=== PATIENT | female | born 1945 | race Hispanic/Latino ===

== ENCOUNTER 2024-05-06 10:22 | Inpatient (IN) | payer MEDICARE ==
[2024-05-06] VITALS (15 sets, daily range): BP systolic 125–152; BP diastolic 50–64; PULSE 81–96; RESP 13–19; TEMP 97.4–98.3; O2SAT 100
[~2024-05-06] VITALS: Ht 157.5 cm; Wt 44.5 kg
[~2024-05-06 10:22] MED LIST: CEFDINIR300 MG PO; DIFLUCAN200 MG PO; GLYBURID-METFO1 EAC2 PO; LISINOPRIL5 MG PO; METFORMIN HCL500 MG PO; Z.0.ALENDRONATE SOD7 PO; Z.0.ATENOLOL50 MG PO; Z.0.BENAZEPRIL HCL10 PO; Z.0.FAMOTIDINE20 MG PO; Z.0.GABAPENTIN300 MG PO; Z.0.JANUVIA100 MG PO; Z.0.METOCLOPRAMIDE10 PO; Z.0.SIMVASTATIN40 MG PO; [UNRECOGNIZED DRUG - OTHER] PO
[2024-05-06 11:38] LABS: CLARITY,URINE TURBID (CLEAR); COLOR,URINE YELLOW (YELLOW)
[2024-05-06 11:39] LABS: BILIRUBIN,URINE NEGATIVE (NEGATIVE); GLUCOSE, URINE 500 (NEGATIVE); KETONES,URINE >=160 (NEGATIVE); LEUKOCYTE ESTERASE ,URINE SMALL (NEGATIVE); NITRITE,URINE NEGATIVE (NEGATIVE); PH,URINE 6 (5 - 7); PROTEIN,URINE DIPSTICK 1+ (NEGATIVE); URINE UROBILINOGEN 0.2 mg/dL (0.2 - 1)
[2024-05-06 11:41] LABS: BACTERIA,URINE MODERATE /HPF; EPITHELIAL CELLS,URINE FEW /LPF; RBC,URINE >50 /HPF (0-5); WBC,URINE (MAN) >50 /HPF (0-5)
[2024-05-06 13:13] LABS: BASOPHILS # (AUTO) 0.1 (0.0-0.1); BASOPHILS % 0.5 % (0.0-1.0); EOSINOPHILS % 0.1 % (0.0-6.0); HEMOGLOBIN 13.2 g/dL (12.0-16.0); LYMPHOCYTES # (AUTO) 1.1 (1.0-3.2); LYMPHOCYTES % 8.3 % (18.0-39.1); MEAN CORPUSCULAR HGB CONC 32.2 g/dL (31-35); MEAN CORPUSCULAR VOLUME 90.1 fL (81-99); MONOCYTES # (AUTO) 0.9 (0.2-0.8); MONOCYTES % 7.2 % (4.4-11.3); NEUTROPHILS # (AUTO) 10.6 (2.1-6.9); NEUTROPHILS % 81.8 % (38.7-80.0); PLATELET COUNT 242 x10e3/uL (140-360); RED BLOOD COUNT 4.55 x10e6/uL (3.6-5.1); RED CELL DISTRIBUTION WIDTH 16.6 % (11.7-14.4)
[2024-05-06 13:38] LABS: INR 0.94; PARTIAL THROMBOPLASTIN TIME 27.6 seconds (23.8-35.5); PROTHROMBIN TIME 13.2 seconds (11.9-14.5)
[2024-05-06 13:47] LABS: ALBUMIN 3.1 g/dL (3.5-5.0); ALBUMIN/GLOBULIN RATIO 0.6 (0.8-2.0); ALKALINE PHOSPHATASE 135 IU/L (40-150); ANION GAP 29.9 mmol/L (8-16); BILIRUBIN,TOTAL 0.5 mg/dL (0.2-1.2); BLOOD UREA NITROGEN 14 mg/dL (7-26); BUN/CREATININE RATIO 10 (6-25); CALCIUM 9.8 mg/dL (8.4-10.2); CHLORIDE 101 mmol/L (98-107); CREATININE, SERUM 1.44 mg/dL (0.57-1.11); EST GLOMERULAR FILTRATION RATE 37 ML/MIN (>=60); MAGNESIUM 1.8 MG/DL (1.3-2.1); POTASSIUM 3.9 mmol/L (3.5-5.1); SODIUM 134 mmol/L (136-145); TOTAL PROTEIN 8.1 g/dL (6.5-8.1)
[2024-05-06 14:04] LABS: CARBON DIOXIDE 7 mmol/L (22-29)
[2024-05-06 14:05] LABS: ALANINE AMINOTRANSFERASE < 6 IU/L (0-55); GLUCOSE 465 mg/dL (74-118)
[2024-05-06] MEDS: CEFTRIAXONE 1 GM VIAL IM ONE (14:32)
[2024-05-06] MEDS ORDERED: LIDOCAINE HCL 1% LOCAL INJ 20 ML VIAL ONE (14:33)
[2024-05-06] MEDS ORDERED: CEFTRIAXONE 1 GM VIAL ONE (14:33)
[2024-05-06] MEDS: MUPIROCIN 2% OINT 22 GM TUBE NS SCH (14:45)
[2024-05-06] MEDS: OXYBUTYNIN CHLORIDE 5 MG TAB PO ONE (14:54)
[2024-05-06 14:58] LABS: TROPONIN I 0.001 ng/mL (0-0.300)
[2024-05-06] MEDS: INSULIN REGULAR, HUMAN 100 UNIT/1 ML SQ ONE (15:01)
[2024-05-06] MEDS: INSULIN REGULAR, HUMAN 100 UNIT/1 ML IV ONE (17:54)
[2024-05-06] MEDS: FLUCONAZOLE 200 MG/100 ML 100 ML IV SCH (19:09)
[2024-05-06] MEDS: SODIUM CHLORIDE 0.9% 1000ML 1,000 ML IV SCH (19:10)
[2024-05-06] MEDS: SODIUM CHLORIDE 0.9% 1000ML 1,000 ML IV STA (19:10)
[2024-05-06] MEDS: INSULIN REGULAR, HUMAN 3ML VL 100 UNIT in SODIUM CHLORIDE 0.9% 99 ML IV SCH (19:13)
[2024-05-06] MEDS: SIMVASTATIN 40 MG TAB PO SCH (21:00)
[2024-05-07] VITALS (43 sets, daily range): BP systolic 90–137; BP diastolic 37–80; PULSE 25–107; RESP 11–20; TEMP 97.8–98.9; O2SAT 93–100
[2024-05-07] MEDS: DEXTROSE 5%/0.45% SOD CHL 1,000 ML IV SCH (00:07)
[2024-05-07 00:20] LABS: ANION GAP 14.8 mmol/L (8-16); CREATININE, SERUM 0.79 mg/dL (0.57-1.11); MAGNESIUM 1.3 MG/DL (1.3-2.1)
[2024-05-07 00:41] LABS: CALCIUM 8.2 mg/dL (8.4-10.2); POTASSIUM 2.8 mmol/L (3.5-5.1)
[2024-05-07] MEDS: MAGNESIUM SULF 1GRAM/DEXTROSE 100 ML IV PRN (00:59)
[2024-05-07] MEDS: POTASSIUM CHLORIDE 20MEQ/100ML 200 ML IV PRN (01:00)
[2024-05-07 01:09] LABS: TROPONIN I 0.011 ng/mL (0-0.300)
[2024-05-07 03:48] LABS: ANION GAP 12.4 mmol/L (8-16); CALCIUM 8.1 mg/dL (8.4-10.2); CREATININE, SERUM 0.8 mg/dL (0.57-1.11); MAGNESIUM 1.7 MG/DL (1.3-2.1)
[2024-05-07 03:53] LABS: POTASSIUM 3.4 mmol/L (3.5-5.1)
[2024-05-07] MEDS: POTASSIUM CHLORIDE 20MEQ/100ML 200 ML ONE ×2 (04:11→04:12)
[2024-05-07] MEDS: MAGNESIUM SULF 1GRAM/DEXTROSE 100 ML IV ONE ×3 (04:12→12:31)
[2024-05-07 06:18] LABS: BASOPHILS % 0.2 % (0.0-1.0); EOSINOPHILS % 0.4 % (0.0-6.0); HEMATOCRIT 28.8 % (34.2-44.1); LYMPHOCYTES # (AUTO) 1.3 (1.0-3.2); LYMPHOCYTES % 12.2 % (18.0-39.1); MEAN CORPUSCULAR HEMOGLOBIN 28.8 pg (28-32); MEAN CORPUSCULAR VOLUME 84.7 fL (81-99); MONOCYTES # (AUTO) 0.9 (0.2-0.8); MONOCYTES % 8.3 % (4.4-11.3); NEUTROPHILS # (AUTO) 8.5 (2.1-6.9); NEUTROPHILS % 77.1 % (38.7-80.0); PLATELET COUNT 211 x10e3/uL (140-360); RED CELL DISTRIBUTION WIDTH 16.2 % (11.7-14.4); WHITE BLOOD COUNT 11.01 x10e3/uL (4.8-10.8)
[2024-05-07 06:25] LABS: HEMOGLOBIN 9.8 g/dL (12.0-16.0)
[2024-05-07 06:58] LABS: ANION GAP 11.3 mmol/L (8-16); CALCIUM 8.1 mg/dL (8.4-10.2); CREATININE, SERUM 0.74 mg/dL (0.57-1.11); MAGNESIUM 1.9 MG/DL (1.3-2.1)
[2024-05-07 06:59] LABS: POTASSIUM 3.3 mmol/L (3.5-5.1)
[2024-05-07 07:28] LABS: CHOL/HDL RATIO 2.9 (3.0-3.6)
[2024-05-07 07:52] LABS: TROPONIN I 0.001 ng/mL (0-0.300)
[2024-05-07] MEDS: Vancomycin IV 1 GM in SODIUM CHLORIDE 0.9% 250ML 250 ML IV ONE (08:13)
[2024-05-07] MEDS: POTASSIUM CHLORIDE 20MEQ/100ML 200 ML IV ONE (08:13)
[2024-05-07] MEDS: GABAPENTIN 300 MG CAP PO SCH (08:14)
[2024-05-07] MEDS: APIXABAN 2.5 MG TABLET PO SCH (08:14)
[2024-05-07 11:49] LABS: ANION GAP 12.8 mmol/L (8-16); CALCIUM 8.3 mg/dL (8.4-10.2); CREATININE, SERUM 0.73 mg/dL (0.57-1.11); MAGNESIUM 1.7 MG/DL (1.3-2.1); POTASSIUM 3.8 mmol/L (3.5-5.1)
[2024-05-07 16:54] LABS: ANION GAP 12.2 mmol/L (8-16); CALCIUM 7.7 mg/dL (8.4-10.2); CREATININE, SERUM 0.78 mg/dL (0.57-1.11); MAGNESIUM 1.8 MG/DL (1.3-2.1); POTASSIUM 4.2 mmol/L (3.5-5.1)
[2024-05-07 21:30] LABS: ANION GAP 11.2 mmol/L (8-16); CALCIUM 7.5 mg/dL (8.4-10.2); CREATININE, SERUM 0.75 mg/dL (0.57-1.11); POTASSIUM 4.2 mmol/L (3.5-5.1)
[2024-05-07 21:44] LABS: BASOPHILS % 0.3 % (0.0-1.0); EOSINOPHILS # (AUTO) 0.2 (0.0-0.4); EOSINOPHILS % 1.6 % (0.0-6.0); HEMATOCRIT 32.2 % (34.2-44.1); LYMPHOCYTES # (AUTO) 1.2 (1.0-3.2); LYMPHOCYTES % 12.4 % (18.0-39.1); MEAN CORPUSCULAR HEMOGLOBIN 29.2 pg (28-32); MEAN CORPUSCULAR HGB CONC 34.2 g/dL (31-35); MEAN CORPUSCULAR VOLUME 85.4 fL (81-99); MONOCYTES # (AUTO) 0.7 (0.2-0.8); MONOCYTES % 7.4 % (4.4-11.3); NEUTROPHILS # (AUTO) 7.4 (2.1-6.9); NEUTROPHILS % 76.8 % (38.7-80.0); PLATELET COUNT 214 x10e3/uL (140-360); RED BLOOD COUNT 3.77 x10e6/uL (3.6-5.1); RED CELL DISTRIBUTION WIDTH 16.7 % (11.7-14.4)
[2024-05-08] VITALS (17 sets, daily range): BP systolic 97–146; BP diastolic 41–79; PULSE 77–123; RESP 10–20; TEMP 98–98.2; O2SAT 98–100
[2024-05-08] MEDS: LORAZEPAM INJ 2 MG/ML VIAL ONE (01:03)
[2024-05-08 01:40] LABS: BASOPHILS % 0.3 % (0.0-1.0); EOSINOPHILS # (AUTO) 0.2 (0.0-0.4); HEMATOCRIT 29.6 % (34.2-44.1); HEMOGLOBIN 10.1 g/dL (12.0-16.0); LYMPHOCYTES # (AUTO) 1.5 (1.0-3.2); LYMPHOCYTES % 15.8 % (18.0-39.1); MEAN CORPUSCULAR HEMOGLOBIN 28.9 pg (28-32); MEAN CORPUSCULAR HGB CONC 34.1 g/dL (31-35); MEAN CORPUSCULAR VOLUME 84.6 fL (81-99); MONOCYTES # (AUTO) 0.7 (0.2-0.8); MONOCYTES % 6.8 % (4.4-11.3); NEUTROPHILS # (AUTO) 7.1 (2.1-6.9); NEUTROPHILS % 73.6 % (38.7-80.0); PLATELET COUNT 206 x10e3/uL (140-360); RED CELL DISTRIBUTION WIDTH 16.6 % (11.7-14.4); WHITE BLOOD COUNT 9.58 x10e3/uL (4.8-10.8)
[2024-05-08 02:00] LABS: ANION GAP 10.1 mmol/L (8-16); CALCIUM 7.4 mg/dL (8.4-10.2); CREATININE, SERUM 0.66 mg/dL (0.57-1.11); POTASSIUM 4.1 mmol/L (3.5-5.1)
[2024-05-08 06:01] LABS: BASOPHILS % 0.3 % (0.0-1.0); EOSINOPHILS # (AUTO) 0.3 (0.0-0.4); EOSINOPHILS % 2.2 % (0.0-6.0); HEMATOCRIT 38.7 % (34.2-44.1); HEMOGLOBIN 12.5 g/dL (12.0-16.0); LYMPHOCYTES # (AUTO) 1.6 (1.0-3.2); LYMPHOCYTES % 13.3 % (18.0-39.1); MEAN CORPUSCULAR HEMOGLOBIN 28.5 pg (28-32); MEAN CORPUSCULAR HGB CONC 32.3 g/dL (31-35); MEAN CORPUSCULAR VOLUME 88.2 fL (81-99); MONOCYTES # (AUTO) 0.9 (0.2-0.8); MONOCYTES % 7.1 % (4.4-11.3); NEUTROPHILS # (AUTO) 9.1 (2.1-6.9); NEUTROPHILS % 75.8 % (38.7-80.0); PLATELET COUNT 239 x10e3/uL (140-360); RED BLOOD COUNT 4.39 x10e6/uL (3.6-5.1); RED CELL DISTRIBUTION WIDTH 16.8 % (11.7-14.4); WHITE BLOOD COUNT 12.08 x10e3/uL (4.8-10.8)
[2024-05-08 06:36] LABS: ANION GAP 13.8 mmol/L (8-16); CALCIUM 8.4 mg/dL (8.4-10.2); CREATININE, SERUM 0.65 mg/dL (0.57-1.11); POTASSIUM 3.8 mmol/L (3.5-5.1)
[2024-05-08] MEDS ORDERED: Vancomycin IV 1 GM in SODIUM CHLORIDE 0.9% 250ML 250 ML IV SCH (08:15)
[2024-05-08] MEDS: LEVOFLOXACIN 500MG/D5W 100ML 100 ML IV SCH (08:42)
[2024-05-08] MEDS: BALSAM PERU/CASTOR OIL 60 GM OINT...G. TP SCH (09:00)
[2024-05-08] MEDS: LORAZEPAM INJ 2 MG/ML VIAL IV PRN (09:16)
[2024-05-08 11:03] LABS: ANION GAP 11.3 mmol/L (8-16); CALCIUM 7.9 mg/dL (8.4-10.2); CREATININE, SERUM 0.49 mg/dL (0.57-1.11); MAGNESIUM 1.5 MG/DL (1.3-2.1)
[2024-05-08 11:21] LABS: POTASSIUM 3.3 mmol/L (3.5-5.1)
[2024-05-08] MEDS: DEXTROSE 50% SYRINGE 50 ML IV ONE (11:30)
[2024-05-08] MEDS: POTASSIUM CHLORIDE 20MEQ/100ML 200 ML IV PRN (11:55)
[2024-05-08] MEDS: MAGNESIUM SULF 1GRAM/DEXTROSE 100 ML IV PRN (11:56)
[2024-05-08 14:25] LABS: ANION GAP 10.8 mmol/L (8-16); BLOOD UREA NITROGEN < 5 mg/dL (7-26); CALCIUM 7.6 mg/dL (8.4-10.2); CARBON DIOXIDE 18 mmol/L (22-29); CHLORIDE 108 mmol/L (98-107); EST GLOMERULAR FILTRATION RATE 96 ML/MIN (>=60); GLUCOSE 145 mg/dL (74-118); MAGNESIUM 1.9 MG/DL (1.3-2.1); POTASSIUM 3.8 mmol/L (3.5-5.1); SODIUM 133 mmol/L (136-145)
[2024-05-08 14:27] LABS: BUN/CREATININE RATIO 10 (6-25)
[2024-05-08 18:40] LABS: ANION GAP 9.2 mmol/L (8-16); BLOOD UREA NITROGEN < 5 mg/dL (7-26); CALCIUM 7.6 mg/dL (8.4-10.2); CARBON DIOXIDE 19 mmol/L (22-29); CHLORIDE 111 mmol/L (98-107); CREATININE, SERUM 0.46 mg/dL (0.57-1.11); EST GLOMERULAR FILTRATION RATE 98 ML/MIN (>=60); GLUCOSE 105 mg/dL (74-118); MAGNESIUM 1.7 MG/DL (1.3-2.1); SODIUM 136 mmol/L (136-145)
[2024-05-08 18:41] LABS: BUN/CREATININE RATIO 11 (6-25); POTASSIUM 3.2 mmol/L (3.5-5.1)
[2024-05-08 21:30] LABS: ANION GAP 9.3 mmol/L (8-16); BLOOD UREA NITROGEN < 5 mg/dL (7-26); CARBON DIOXIDE 20 mmol/L (22-29); CHLORIDE 112 mmol/L (98-107); CREATININE, SERUM 0.49 mg/dL (0.57-1.11); EST GLOMERULAR FILTRATION RATE 96 ML/MIN (>=60); GLUCOSE 64 mg/dL (74-118); MAGNESIUM 1.7 MG/DL (1.3-2.1); SODIUM 138 mmol/L (136-145)
[2024-05-08 21:31] LABS: BUN/CREATININE RATIO 10 (6-25); POTASSIUM 3.3 mmol/L (3.5-5.1)
[2024-05-08] MEDS: DEXTROSE 50% SYRINGE 50 ML IV PRN (23:40)
[2024-05-09] VITALS (19 sets, daily range): BP systolic 97–151; BP diastolic 43–92; PULSE 87–109; RESP 13–26; TEMP 98–99; O2SAT 58–100
[2024-05-09 05:38] LABS: ANION GAP 11.4 mmol/L (8-16); BLOOD UREA NITROGEN < 5 mg/dL (7-26); CALCIUM 7.5 mg/dL (8.4-10.2); CARBON DIOXIDE 18 mmol/L (22-29); CHLORIDE 111 mmol/L (98-107); CREATININE, SERUM 0.43 mg/dL (0.57-1.11); EST GLOMERULAR FILTRATION RATE 99 ML/MIN (>=60); MAGNESIUM 1.8 MG/DL (1.3-2.1); SODIUM 137 mmol/L (136-145)
[2024-05-09 05:40] LABS: BUN/CREATININE RATIO 12 (6-25); POTASSIUM 3.4 mmol/L (3.5-5.1)
[2024-05-09 05:53] LABS: GLUCOSE 59 mg/dL (74-118)
[2024-05-09] MEDS: POTASSIUM CHLORIDE 20MEQ/100ML 100 ML IV PRN (07:39)
[2024-05-09 10:29] LABS: ANION GAP 9.8 mmol/L (8-16); BLOOD UREA NITROGEN < 5 mg/dL (7-26); CALCIUM 7.4 mg/dL (8.4-10.2); CARBON DIOXIDE 20 mmol/L (22-29); CHLORIDE 108 mmol/L (98-107); CREATININE, SERUM 0.45 mg/dL (0.57-1.11); EST GLOMERULAR FILTRATION RATE 98 ML/MIN (>=60); GLUCOSE 106 mg/dL (74-118); MAGNESIUM 1.5 MG/DL (1.3-2.1); POTASSIUM 3.8 mmol/L (3.5-5.1); SODIUM 134 mmol/L (136-145)
[2024-05-09 10:46] LABS: BUN/CREATININE RATIO 11 (6-25)
[2024-05-09 14:32] LABS: ANION GAP 10.4 mmol/L (8-16); BLOOD UREA NITROGEN < 5 mg/dL (7-26); CALCIUM 7.2 mg/dL (8.4-10.2); CARBON DIOXIDE 19 mmol/L (22-29); CHLORIDE 108 mmol/L (98-107); CREATININE, SERUM 0.44 mg/dL (0.57-1.11); EST GLOMERULAR FILTRATION RATE 99 ML/MIN (>=60); GLUCOSE 113 mg/dL (74-118); MAGNESIUM 1.8 MG/DL (1.3-2.1); SODIUM 134 mmol/L (136-145)
[2024-05-09 14:44] LABS: BUN/CREATININE RATIO 11 (6-25); POTASSIUM 3.4 mmol/L (3.5-5.1)
[2024-05-09] MEDS: LORAZEPAM INJ 2 MG/ML VIAL IV PRN (17:00)
[2024-05-09 18:53] LABS: ANION GAP 13.3 mmol/L (8-16); BLOOD UREA NITROGEN < 5 mg/dL (7-26); BUN/CREATININE RATIO 10 (6-25); CALCIUM 7.6 mg/dL (8.4-10.2); CARBON DIOXIDE 18 mmol/L (22-29); CHLORIDE 107 mmol/L (98-107); CREATININE, SERUM 0.52 mg/dL (0.57-1.11); EST GLOMERULAR FILTRATION RATE 95 ML/MIN (>=60); GLUCOSE 185 mg/dL (74-118); MAGNESIUM 1.6 MG/DL (1.3-2.1); SODIUM 134 mmol/L (136-145)
[2024-05-09 18:57] LABS: POTASSIUM 4.3 mmol/L (3.5-5.1)
[2024-05-09] MEDS: QUETIAPINE FUMARATE 25 MG TAB PO SCH (20:15)
[2024-05-09] MEDS: ONDANSETRON HCL INJ 2MG/ML 2ML 2 MG/ML VIAL IV PRN (22:19)
[2024-05-09 22:26] LABS: ANION GAP 10.8 mmol/L (8-16); BLOOD UREA NITROGEN < 5 mg/dL (7-26); BUN/CREATININE RATIO 9 (6-25); CALCIUM 7.5 mg/dL (8.4-10.2); CARBON DIOXIDE 18 mmol/L (22-29); CHLORIDE 106 mmol/L (98-107); CREATININE, SERUM 0.53 mg/dL (0.57-1.11); EST GLOMERULAR FILTRATION RATE 95 ML/MIN (>=60); GLUCOSE 183 mg/dL (74-118); MAGNESIUM 1.8 MG/DL (1.3-2.1); POTASSIUM 3.8 mmol/L (3.5-5.1); SODIUM 131 mmol/L (136-145)
[2024-05-10] VITALS (22 sets, daily range): BP systolic 100–162; BP diastolic 46–97; PULSE 92–130; RESP 13–24; TEMP 98.5–100.3; O2SAT 98–100
[2024-05-10 06:40] LABS: BASOPHILS % 0.2 % (0.0-1.0); EOSINOPHILS # (AUTO) 0.2 (0.0-0.4); EOSINOPHILS % 2.1 % (0.0-6.0); HEMATOCRIT 28.3 % (34.2-44.1); HEMOGLOBIN 9.7 g/dL (12.0-16.0); LYMPHOCYTES # (AUTO) 1.7 (1.0-3.2); MEAN CORPUSCULAR HEMOGLOBIN 28.9 pg (28-32); MEAN CORPUSCULAR HGB CONC 34.3 g/dL (31-35); MEAN CORPUSCULAR VOLUME 84.2 fL (81-99); MONOCYTES # (AUTO) 0.8 (0.2-0.8); MONOCYTES % 9.2 % (4.4-11.3); NEUTROPHILS # (AUTO) 6.2 (2.1-6.9); NEUTROPHILS % 68.4 % (38.7-80.0); PLATELET COUNT 253 x10e3/uL (140-360); RED BLOOD COUNT 3.36 x10e6/uL (3.6-5.1); RED CELL DISTRIBUTION WIDTH 16.5 % (11.7-14.4); WHITE BLOOD COUNT 9.05 x10e3/uL (4.8-10.8)
[2024-05-10 07:03] LABS: ANION GAP 10.5 mmol/L (8-16); BLOOD UREA NITROGEN < 5 mg/dL (7-26); CALCIUM 7.8 mg/dL (8.4-10.2); CARBON DIOXIDE 21 mmol/L (22-29); CHLORIDE 107 mmol/L (98-107); CREATININE, SERUM 0.49 mg/dL (0.57-1.11); EST GLOMERULAR FILTRATION RATE 96 ML/MIN (>=60); POTASSIUM 3.5 mmol/L (3.5-5.1); SODIUM 135 mmol/L (136-145)
[2024-05-10 07:10] LABS: BUN/CREATININE RATIO 10 (6-25)
[2024-05-10 07:13] LABS: GLUCOSE 59 mg/dL (74-118)
[2024-05-10] MEDS ORDERED: LORAZEPAM INJ 2 MG/ML VIAL IV PRN (11:30)
[2024-05-10] MEDS ORDERED: DEXTROSE 50% SYRINGE 50 ML IV PRN (11:45)
[2024-05-10] MEDS: INSULIN REGULAR, HUMAN 100 UNIT/1 ML SQ SCH (17:31)
[2024-05-11] VITALS (10 sets, daily range): BP systolic 96–130; BP diastolic 47–76; PULSE 90–100; RESP 12–19; TEMP 98.1–100; O2SAT 95–100
[2024-05-11] MEDS: Vancomycin IV 1 GM in SODIUM CHLORIDE 0.9% 250ML 250 ML IV SCH (08:19)
[2024-05-11] MEDS: INSULIN GLARGINE 100 UNITS/ML VIAL SQ SCH (21:00)
[2024-05-11] MEDS: ALPRAZOLAM 0.25 MG TAB PO SCH (21:00)
[2024-05-12 03:31] VITALS: BP 121/62; PULSE 103; RESP 18; TEMP 98.9; O2SAT 99
[2024-05-12 08:23] VITALS: BP 125/53; PULSE 91; RESP 15; TEMP 97.9; O2SAT 100
[2024-05-12 08:45] VITALS: BP 125/53; PULSE 91; RESP 15; TEMP 97.9; O2SAT 100
[2024-05-12 20:00] VITALS: BP 120/54; PULSE 95; RESP 18; TEMP 98.6; O2SAT 98
[2024-05-12] MEDS: INSULIN GLARGINE 100 UNITS/ML VIAL SQ SCH (21:38)
[2024-05-12 23:57] VITALS: BP 120/54; PULSE 95; RESP 18; TEMP 98.6; O2SAT 98
[2024-05-13] VITALS (8 sets, daily range): BP systolic 104–136; BP diastolic 45–80; PULSE 89–103; RESP 18; TEMP 97.6–98.8; O2SAT 93–100
[2024-05-13 06:50] LABS: BASOPHILS % 0.2 % (0.0-1.0); EOSINOPHILS # (AUTO) 0.2 (0.0-0.4); EOSINOPHILS % 3.5 % (0.0-6.0); HEMOGLOBIN 9.1 g/dL (12.0-16.0); LYMPHOCYTES # (AUTO) 1.9 (1.0-3.2); LYMPHOCYTES % 36.7 % (18.0-39.1); MEAN CORPUSCULAR HEMOGLOBIN 28.2 pg (28-32); MEAN CORPUSCULAR HGB CONC 31.4 g/dL (31-35); MEAN CORPUSCULAR VOLUME 89.8 fL (81-99); MONOCYTES # (AUTO) 0.8 (0.2-0.8); MONOCYTES % 15.6 % (4.4-11.3); NEUTROPHILS # (AUTO) 2.2 (2.1-6.9); NEUTROPHILS % 42.8 % (38.7-80.0); PLATELET COUNT 263 x10e3/uL (140-360); RED BLOOD COUNT 3.23 x10e6/uL (3.6-5.1); RED CELL DISTRIBUTION WIDTH 15.9 % (11.7-14.4); WHITE BLOOD COUNT 5.18 x10e3/uL (4.8-10.8)
[2024-05-13 07:14] LABS: ALBUMIN 1.9 g/dL (3.5-5.0); ALBUMIN/GLOBULIN RATIO 0.6 (0.8-2.0); ALKALINE PHOSPHATASE 87 IU/L (40-150); ANION GAP 12.6 mmol/L (8-16); BILIRUBIN,TOTAL 0.2 mg/dL (0.2-1.2); BLOOD UREA NITROGEN 12 mg/dL (7-26); BUN/CREATININE RATIO 23 (6-25); CARBON DIOXIDE 25 mmol/L (22-29); CHLORIDE 106 mmol/L (98-107); CREATININE, SERUM 0.53 mg/dL (0.57-1.11); EST GLOMERULAR FILTRATION RATE 95 ML/MIN (>=60); GLUCOSE 113 mg/dL (74-118); POTASSIUM 3.6 mmol/L (3.5-5.1); SODIUM 140 mmol/L (136-145); TOTAL PROTEIN 5.2 g/dL (6.5-8.1)
[2024-05-13 07:17] LABS: ALANINE AMINOTRANSFERASE < 6 IU/L (0-55)
[2024-05-13 11:28] LABS: LYMPHOCYTES % (MANUAL) 32 % (19-48); MONOCYTES % (MANUAL) 8 % (3.4-9.0); NEUTROPHILS % (MANUAL) 60 % (40-74); PLATELET ESTIMATE ADEQUATE; PLATELET MORPHOLOGY COMMENT NORMAL; RBC MORPHOLOGY COMMENT NORMAL
[2024-05-14] VITALS (8 sets, daily range): BP systolic 112–135; BP diastolic 50–69; PULSE 93–105; RESP 17–20; TEMP 97.7–99.1; O2SAT 100
[2024-05-14 06:36] LABS: ALBUMIN 2.2 g/dL (3.5-5.0); ALBUMIN/GLOBULIN RATIO 0.6 (0.8-2.0); ANION GAP 11.9 mmol/L (8-16); BILIRUBIN,TOTAL 0.1 mg/dL (0.2-1.2); CALCIUM 8.3 mg/dL (8.4-10.2); CREATININE, SERUM 0.63 mg/dL (0.57-1.11); POTASSIUM 3.9 mmol/L (3.5-5.1); TOTAL PROTEIN 5.7 g/dL (6.5-8.1)
[2024-05-14] MEDS: INSULIN GLARGINE 100 UNITS/ML VIAL SQ ONE (11:43)
[2024-05-14] MEDS ORDERED: ONDANSETRON HCL 4 MG ORAL DISINTEGRATING TAB PO PRN (16:30)
[2024-05-15] VITALS: BP 122/56; PULSE 93; RESP 20; TEMP 97.7; O2SAT 100
[2024-05-15 04:00] VITALS: BP 108/50; PULSE 95; RESP 18; TEMP 98.5; O2SAT 100
[2024-05-15 08:00] VITALS: BP 131/62; PULSE 91; RESP 18; TEMP 98.2; O2SAT 100
[2024-05-15 08:14] VITALS: BP 131/62; PULSE 91; RESP 18; TEMP 98.2; O2SAT 100
[2024-05-15 12:42] VITALS: BP 121/54; PULSE 97; RESP 16; TEMP 98.5; O2SAT 100
[2024-05-15 16:12] VITALS: BP 118/59; PULSE 95; RESP 17; TEMP 98.1; O2SAT 100
== END 2024-05-15 22:34 | disposition home or self-care (01) | DRG 637 ==
LOC: ER 10:29 → ERHOLD 16:46 → ICU 20:59 → MED/SURG2 05-11 13:30
PROVIDERS: ADMIT Family Medicine; ATTEND Family Medicine
PROC: 02HV33Z Insertion of Infusion Device into Superior Vena Cava, Percutaneous Approach (ICD-10-PCS; principal; 2024-05-06)
PROC: 0T9B70Z Drainage of Bladder with Drainage Device, Via Natural or Artificial Opening (ICD-10-PCS; 2024-05-06)
DX: E11.10 Type 2 diabetes mellitus with ketoacidosis without coma (principal); E43 Unspecified severe protein-calorie malnutrition; G93.41 Metabolic encephalopathy; N39.0 Urinary tract infection, site not specified; N17.9 Acute kidney failure, unspecified; Z68.1 Body mass index [BMI] 19.9 or less, adult; I27.82 Chronic pulmonary embolism; F03.911 Unspecified dementia, unspecified severity, with agitation; E78.5 Hyperlipidemia, unspecified; E11.22 Type 2 diabetes mellitus with diabetic chronic kidney disease; N18.9 Chronic kidney disease, unspecified; M62.50 Muscle wasting and atrophy, not elsewhere classified, unspecified site; E88.A Wasting disease (syndrome) due to underlying condition; E83.42 Hypomagnesemia; B95.62 Methicillin resistant Staphylococcus aureus infection as the cause of diseases classified elsewhere; Z20.89 Contact with and (suspected) exposure to other communicable diseases; Z11.52 Encounter for screening for COVID-19; Z88.0 Allergy status to penicillin; Z88.6 Allergy status to analgesic agent; Z79.84 Long term (current) use of oral hypoglycemic drugs; Z59.9 Problem related to housing and economic circumstances, unspecified; Z79.01 Long term (current) use of anticoagulants; Z87.440 Personal history of urinary (tract) infections; Z87.891 Personal history of nicotine dependence; Z91.141 Patient's other noncompliance with medication regimen due to financial hardship
CPT/HCPCS: 36415; 36569; 51700; 71045; 74176; 80048; 80053; 80061; 80202; 81001; 82550; 82948; 83605; 83735; 84484; 85025; 85610; 85730; 87040; 87086; 87186; 93005; 94799; 96372; 99252; 99284; J0696; J1450; J1815; J1956; J2001; J2060; J2405; J3475; J3480; J7030; J7050; J7799; U0002

== ENCOUNTER 2024-05-21 03:34 | Emergency (ER) | payer MEDICARE ==
[~2024-05-21] VITALS: Ht 157.5 cm; Wt 44.5 kg
[2024-05-21 03:45] VITALS: TEMP 98.9
[2024-05-21] MEDS: SODIUM CHLORIDE 0.9% 1000ML 2,000 ML IV STA (04:00)
[2024-05-21 04:09] LABS: BASOPHILS % 0.4 % (0.0-1.0); EOSINOPHILS # (AUTO) 0.1 (0.0-0.4); EOSINOPHILS % 1.2 % (0.0-6.0); HEMATOCRIT 30.3 % (34.2-44.1); HEMOGLOBIN 9.9 g/dL (12.0-16.0); LYMPHOCYTES # (AUTO) 1.9 (1.0-3.2); LYMPHOCYTES % 21.2 % (18.0-39.1); MEAN CORPUSCULAR HGB CONC 32.7 g/dL (31-35); MEAN CORPUSCULAR VOLUME 88.9 fL (81-99); MONOCYTES # (AUTO) 0.6 (0.2-0.8); MONOCYTES % 6.1 % (4.4-11.3); NEUTROPHILS # (AUTO) 6.4 (2.1-6.9); NEUTROPHILS % 70.7 % (38.7-80.0); PLATELET COUNT 303 x10e3/uL (140-360); RED BLOOD COUNT 3.41 x10e6/uL (3.6-5.1); RED CELL DISTRIBUTION WIDTH 16.3 % (11.7-14.4); WHITE BLOOD COUNT 9.12 x10e3/uL (4.8-10.8)
[2024-05-21 04:23] LABS: ABG HCO3 25 mmol/L (22-26); ABG PCO2 40 mmHg (35-45); ABG PH 7.41 (7.35-7.45); ABG PO2 96 mmHg (80-105); ABG TCO2 26
[2024-05-21 04:25] LABS: ALANINE AMINOTRANSFERASE 6 IU/L (0-55); ALBUMIN 2.9 g/dL (3.5-5.0); ALBUMIN/GLOBULIN RATIO 0.8 (0.8-2.0); ALKALINE PHOSPHATASE 110 IU/L (40-150); BILIRUBIN,TOTAL 0.3 mg/dL (0.2-1.2); BLOOD UREA NITROGEN 17 mg/dL (7-26); BUN/CREATININE RATIO 22 (6-25); CALCIUM 8.3 mg/dL (8.4-10.2); CARBON DIOXIDE 24 mmol/L (22-29); CHLORIDE 97 mmol/L (98-107); CREATINE KINASE 13 IU/L (29-168); CREATININE, SERUM 0.77 mg/dL (0.57-1.11); EST GLOMERULAR FILTRATION RATE 79 ML/MIN (>=60); SODIUM 131 mmol/L (136-145); TOTAL PROTEIN 6.6 g/dL (6.5-8.1)
[2024-05-21 04:44] LABS: TROPONIN I < 0.001 ng/mL (0-0.300)
[2024-05-21 04:48] LABS: GLUCOSE 529 mg/dL (74-118)
[2024-05-21] MEDS: INSULIN REGULAR, HUMAN 100 UNIT/1 ML SQ STA (05:09)
[2024-05-21 05:45] VITALS: PULSE 85; RESP 14
[2024-05-21 06:33] VITALS: BP 139/65; O2SAT 100
== END 2024-05-21 06:15 | disposition home or self-care (01) ==
LOC: ER 03:42
DX: R33.9 Retention of urine, unspecified (principal); E11.65 Type 2 diabetes mellitus with hyperglycemia; E11.22 Type 2 diabetes mellitus with diabetic chronic kidney disease; N18.9 Chronic kidney disease, unspecified; Z46.6 Encounter for fitting and adjustment of urinary device; Z88.0 Allergy status to penicillin; Z88.5 Allergy status to narcotic agent; Z79.84 Long term (current) use of oral hypoglycemic drugs; Z79.899 Other long term (current) drug therapy
CPT/HCPCS: 36415; 36600; 51700; 71045; 80053; 82550; 82805; 82948; 83690; 83880; 84484; 85025; 93005; 99285; J7030; U0002

== ENCOUNTER 2024-06-05 14:04 | Emergency (ER) | payer MEDICARE ==
[~2024-06-05] VITALS: Ht 157.5 cm; Wt 44.5 kg
[2024-06-05 14:56] VITALS: TEMP 98
[2024-06-05 16:18] VITALS: PULSE 71; RESP 16; O2SAT 97
[2024-06-05 17:00] LABS: BILIRUBIN,URINE NEGATIVE (NEGATIVE); CLARITY,URINE SL CLOUDY (CLEAR); COLOR,URINE YELLOW (YELLOW); GLUCOSE, URINE 500 (NEGATIVE); KETONES,URINE 2+ (NEGATIVE); LEUKOCYTE ESTERASE ,URINE TRACE (NEGATIVE); NITRITE,URINE POSITIVE (NEGATIVE); PH,URINE 5.5 (5 - 7); PROTEIN,URINE DIPSTICK 1+ (NEGATIVE); URINE UROBILINOGEN 0.2 mg/dL (0.2 - 1)
[2024-06-05 17:06] LABS: BACTERIA,URINE MODERATE /HPF; EPITHELIAL CELLS,URINE FEW /LPF; WBC,URINE (MAN) 21-50 /HPF (0-5)
[2024-06-05] MEDS ORDERED: CEFDINIR300 MG PO (17:24)
== END 2024-06-05 17:41 | disposition home or self-care (01) ==
LOC: ER 15:48
DX: R30.0 Dysuria (principal); N39.0 Urinary tract infection, site not specified; E78.5 Hyperlipidemia, unspecified; E11.22 Type 2 diabetes mellitus with diabetic chronic kidney disease
CPT/HCPCS: 81001; 99283

== ENCOUNTER 2024-06-07 12:30 | Emergency (ER) | payer MEDICARE ==
[~2024-06-07] VITALS: Ht 157.5 cm; Wt 44.5 kg
[2024-06-07 13:15] VITALS: PULSE 78; RESP 16; TEMP 98.4
[2024-06-07 15:10] VITALS: BP 162/67; PULSE 74; RESP 16; O2SAT 100
== END 2024-06-07 15:10 | disposition home or self-care (01) ==
LOC: ER 12:39
DX: Z46.6 Encounter for fitting and adjustment of urinary device (principal); E11.9 Type 2 diabetes mellitus without complications; N28.9 Disorder of kidney and ureter, unspecified; E78.5 Hyperlipidemia, unspecified
CPT/HCPCS: 51700; 99283

== ENCOUNTER 2024-07-03 16:49 | Emergency (ER) | payer MEDICARE ==
[~2024-07-03] VITALS: Ht 157.5 cm; Wt 44.5 kg
[2024-07-03 16:54] VITALS: PULSE 85; RESP 17; TEMP 98.3
[2024-07-03] MEDS ORDERED: CIPROFLOXACIN250 MG PO (18:11)
[2024-07-03 18:15] LABS: CLARITY,URINE CLOUDY (CLEAR); COLOR,URINE YELLOW (YELLOW); LEUKOCYTE ESTERASE ,URINE SMALL (NEGATIVE); NITRITE,URINE NEGATIVE (NEGATIVE); PH,URINE 5.5 (5 - 7); PROTEIN,URINE DIPSTICK 1+ (NEGATIVE)
[2024-07-03 18:16] LABS: BILIRUBIN,URINE NEGATIVE (NEGATIVE); GLUCOSE, URINE 500 (NEGATIVE); KETONES,URINE 1+ (NEGATIVE); URINE UROBILINOGEN 0.2 mg/dL (0.2 - 1)
[2024-07-03 18:28] LABS: BACTERIA,URINE FEW /HPF
[2024-07-03 18:29] LABS: EPITHELIAL CELLS,URINE RARE /LPF
[2024-07-03 18:51] VITALS: BP 165/67; PULSE 75; RESP 16; TEMP 98.1; O2SAT 100
== END 2024-07-03 19:32 | disposition home or self-care (01) ==
LOC: ER 16:56
DX: Z46.6 Encounter for fitting and adjustment of urinary device (principal); N39.0 Urinary tract infection, site not specified; R10.30 Lower abdominal pain, unspecified; E11.22 Type 2 diabetes mellitus with diabetic chronic kidney disease; E78.5 Hyperlipidemia, unspecified; F17.210 Nicotine dependence, cigarettes, uncomplicated
CPT/HCPCS: 51700; 81001; 87086; 87186; 99283

== ENCOUNTER 2024-11-01 17:16 | Emergency (ER) | payer MEDICARE ==
[~2024-11-01] VITALS: Ht 157.5 cm; Wt 44.5 kg
[~2024-11-01 17:16] MED LIST changes: +CIPROFLOXACIN250 MG PO
[2024-11-01 17:28] VITALS: PULSE 93; RESP 18; TEMP 98
[2024-11-01 19:42] LABS: CLARITY,URINE CLOUDY (CLEAR); COLOR,URINE YELLOW (YELLOW)
[2024-11-01 19:43] LABS: BILIRUBIN,URINE NEGATIVE (NEGATIVE); KETONES,URINE 2+ (NEGATIVE); LEUKOCYTE ESTERASE ,URINE SMALL (NEGATIVE); NITRITE,URINE NEGATIVE (NEGATIVE); PH,URINE 5.5 (5 - 7); URINE UROBILINOGEN 0.2 mg/dL (0.2 - 1)
[2024-11-01 19:44] LABS: GLUCOSE, URINE >=1000 (NEGATIVE); PROTEIN,URINE DIPSTICK TRACE (NEGATIVE)
[2024-11-01 20:12] LABS: EPITHELIAL CELLS,URINE FEW /LPF; WBC,URINE (MAN) >50 /HPF (0-5)
[2024-11-01 20:13] LABS: YEAST,URINE MANY
[2024-11-01] MEDS ORDERED: BACTRIM DS TAB1 EACH PO (20:39)
[2024-11-01] MEDS ORDERED: DIFLUCAN200 MG PO (20:39)
[2024-11-01] MEDS: SODIUM CHLORIDE 0.9% 1000ML 1,000 ML IV ONE (21:09)
[2024-11-01 21:26] VITALS: BP 125/58; O2SAT 99
== END 2024-11-01 21:20 | disposition home or self-care (01) ==
LOC: ER 17:38
DX: B37.9 Candidiasis, unspecified (principal); N39.0 Urinary tract infection, site not specified; E11.22 Type 2 diabetes mellitus with diabetic chronic kidney disease; E78.5 Hyperlipidemia, unspecified
CPT/HCPCS: 81001; 87086; 99283